=== PATIENT | female | born 1950 | race Caucasian/White ===

== ENCOUNTER → 2016-04-05 | Outpatient (CLI) | payer MEDICARE ==
[2016-04-05 16:02] VITALS: BP 123/72; PULSE 98; RESP 14; TEMP 98.4; BMI 38.2
--- NOTE | 2016-04-05 16:19 | P.HPBAR ---
Bariatric H&P - History & Physicial H&P Date: 04/05/16 History & Physicial: Visit/CC: band fill Patient initial contact: Initial weight: 111.13 kg Initial weight in pounds: 245.00 Height: 5 ft 3.5 in Initial BMI: 42.7 Last weight: Current weight: 99.518 kg Current weight in pounds: 219.40 Current BMI: 38.2 [place] body weight (based on NIH guidelines): 53.297 kg Excess body weight loss: 20.0% The patient is a 65 year-old F who presents for Bariatric Assessment. The patient presents for lab band follow. She has complaints of hunger. Past Medical History Past Medical History: No Reported History Additional Past Medical History / Comment(s): LAP-BAND 8-10yrs ago History of Any Multi-Drug Resistant Organisms: None Reported Past Surgical History: Hysterectomy Additional Past Surgical History / Comment(s): lap band Past Psychological History: No Psychological Hx Reported Smoking Status: Former smoker Past Alcohol Use History: None Reported Past Drug Use History: None Reported Surgical - Exam Vital Signs Temp Pulse Resp BP 98.4 F 98 14 123/72 04/05/16 15:56 04/05/16 15:56 04/05/16 15:56 04/05/16 15:56 - General well developed, no distress - Eyes PERRL - ENT normal pinna - Neck no masses - Respiratory normal expansion - Cardiovascular Rhythm: regular - Abdomen Abdomen: soft, non tender Bariatric Assessment & Plan Plan: Hunger. Patient's lap band was adjusted. She had 1.5 mL added to her band. She'll follow-up in 2 weeks. Bariatric Checklist Checklist: Plan: Checklist: EGD: 1. Hiatal hernia: 2. H. Pylori: HgbA1c: Vitamin D: Smoking: Former smoker Primary care physician referral: erlinda gagnon Psychiatry clearance: Cardiology clearance: Sleep study: Diet journal: VTE risk score: VTE risk level: Rehab needs at discharge:
== END | disposition home or self-care (01) ==
LOC: BARWHC3 15:15
PROVIDERS: ATTEND Surgery
DX: Z48.815 Encounter for surgical aftercare following surgery on the digestive system (principal); Z98.84 Bariatric surgery status; Z68.38 Body mass index [BMI] 38.0-38.9, adult; Z87.891 Personal history of nicotine dependence
CPT/HCPCS: 99212

== ENCOUNTER → 2017-03-14 | Outpatient (CLI) | payer MEDICARE ==
[2017-03-14 13:42] VITALS: BP 114/78; PULSE 99; RESP 15; TEMP 98.7; BMI 36.2
--- NOTE | 2017-03-14 16:31 | P.HPBAR ---
Bariatric H&P - History & Physicial H&P Date: 03/14/17 History & Physicial: Visit/CC: band fill Patient initial contact: Initial weight: 111.13 kg Initial weight in pounds: 245.00 Height: 5 ft 5 in Initial BMI: 40.7 Last weight: Current weight: 98.883 kg Current weight in pounds: 218.00 Current BMI: 36.2 [place] body weight (based on NIH guidelines): 56.699 kg Excess body weight loss: 22.4% The patient is a 66 year-old F who presents for Bariatric Assessment. She presents today for lab band follow up. She is currently hungry. She is requesting a fill of her LAP-BAND. Past Medical History Past Medical History: No Reported History Additional Past Medical History / Comment(s): LAP-BAND 8-10yrs ago History of Any Multi-Drug Resistant Organisms: None Reported Past Surgical History: Hysterectomy Additional Past Surgical History / Comment(s): lap band Past Psychological History: No Psychological Hx Reported Smoking Status: Former smoker Past Alcohol Use History: None Reported Past Drug Use History: None Reported Surgical - Exam Vital Signs Temp Pulse Resp BP 98.7 F 99 15 114/78 03/14/17 13:23 03/14/17 13:23 03/14/17 13:23 03/14/17 13:23 - General well developed, no distress - Eyes PERRL - ENT normal pinna - Neck no masses - Respiratory normal expansion - Cardiovascular Rhythm: regular - Abdomen Abdomen: soft, non tender Bariatric Assessment & Plan Plan: LAP-BAND was adjusted. She had 1.5 mL added to her band. She currently has 3 mL in the band. She's ill drink water without difficulty. She'll follow-up in one month. Bariatric Checklist Checklist: Plan: Checklist: EGD: 1. Hiatal hernia: 2. H. Pylori: HgbA1c: Vitamin D: Smoking: Former smoker Primary care physician referral: erlinda gagnon Psychiatry clearance: Cardiology clearance: Sleep study: Diet journal: VTE risk score: VTE risk level: Rehab needs at discharge:
== END | disposition home or self-care (01) ==
LOC: BARWHC3 12:56
PROVIDERS: ATTEND Surgery
DX: Z48.815 Encounter for surgical aftercare following surgery on the digestive system (principal); Z87.891 Personal history of nicotine dependence; Z98.84 Bariatric surgery status
CPT/HCPCS: 99212

== ENCOUNTER → 2017-03-21 | Outpatient (CLI) | payer MEDICARE ==
[2017-03-21 13:24] VITALS: BP 142/91; PULSE 88; RESP 16; TEMP 98.3; BMI 36.8
--- NOTE | 2017-03-21 15:05 | P.HPBAR ---
Bariatric H&P - History & Physicial H&P Date: 03/21/17 History & Physicial: Visit/CC: band adj Patient initial contact: Initial weight: 111.13 kg Initial weight in pounds: 245.00 Height: 5 ft 3.5 in Initial BMI: 42.7 Last weight: 218 Current weight: 95.906 kg Current weight in pounds: 211.00 Current BMI: 36.8 [place] body weight (based on NIH guidelines): 53.297 kg Excess body weight loss: 26.6% The patient is a 66 year-old F who presents for Bariatric Assessment. Patient resents today for her LAP-BAND adjustment. She states that she feels her band is too tight. Past Medical History Past Medical History: No Reported History Additional Past Medical History / Comment(s): LAP-BAND 8-10yrs ago History of Any Multi-Drug Resistant Organisms: None Reported Past Surgical History: Hysterectomy Additional Past Surgical History / Comment(s): lap band Past Psychological History: No Psychological Hx Reported Smoking Status: Former smoker Past Alcohol Use History: None Reported Past Drug Use History: None Reported Surgical - Exam Vital Signs Temp Pulse Resp BP 98.3 F 88 16 142/91 03/21/17 13:21 03/21/17 13:21 03/21/17 13:21 03/21/17 13:21 - General well developed, no distress - Eyes PERRL - ENT normal pinna - Neck no masses - Respiratory normal expansion - Cardiovascular Rhythm: regular - Abdomen Abdomen: soft, non tender Bariatric Assessment & Plan Plan: The patient LAP-BAND was adjusted. 0.5 mL was removed from her LAP-BAND. She will follow in 1 month for recheck. Bariatric Checklist Checklist: Plan: Checklist: EGD: 1. Hiatal hernia: 2. H. Pylori: HgbA1c: Vitamin D: Smoking: Former smoker Primary care physician referral: erlinda gagnon Psychiatry clearance: Cardiology clearance: Sleep study: Diet journal: VTE risk score: VTE risk level: Rehab needs at discharge:
== END | disposition home or self-care (01) ==
LOC: CANPRECLI → BARWHC3 12:56
PROVIDERS: ATTEND Surgery
DX: Z53.9 Procedure and treatment not carried out, unspecified reason (principal)

== ENCOUNTER → 2017-06-06 | Outpatient (CLI) | payer MEDICARE ==
[2017-06-06 15:32] VITALS: BP 155/88; PULSE 79; RESP 16; TEMP 98.1; BMI 38.3
--- NOTE | 2017-06-06 16:35 | P.HPBAR ---
Bariatric H&P - History & Physicial H&P Date: 06/06/17 History & Physicial: Visit/CC: band adj Patient initial contact: Initial weight: 111.13 kg Initial weight in pounds: 245.00 Height: 5 ft 3.5 in Initial BMI: 42.7 Last weight: Current weight: 99.819 kg Current weight in pounds: 220.06 Current BMI: 38.3 [place] body weight (based on NIH guidelines): 53.297 kg Excess body weight loss: 19.5% The patient is a 66 year-old F who presents for Bariatric Assessment. Patient resents today for lab band follow. She is currently hungry and is requesting a fill of her band. Past Medical History Past Medical History: No Reported History Additional Past Medical History / Comment(s): LAP-BAND 8-10yrs ago History of Any Multi-Drug Resistant Organisms: None Reported Past Surgical History: Hysterectomy Additional Past Surgical History / Comment(s): lap band Past Psychological History: No Psychological Hx Reported Smoking Status: Former smoker Past Alcohol Use History: None Reported Past Drug Use History: None Reported Surgical - Exam Vital Signs Temp Pulse Resp BP 98.1 F 79 16 155/88 06/06/17 15:30 06/06/17 15:30 06/06/17 15:30 06/06/17 15:30 - General well developed, well nourished - Eyes PERRL - ENT normal pinna - Neck no masses - Respiratory normal expansion - Cardiovascular Rhythm: regular - Abdomen Abdomen: soft, non tender Bariatric Assessment & Plan Plan: The patient LAP-BAND was adjusted. She had 0.3 mL added to her band. She tries to 0.8 mL in the band. She was able require without difficulty. She'll follow-up in one month. Bariatric Checklist Checklist: Plan: Checklist: EGD: 1. Hiatal hernia: 2. H. Pylori: HgbA1c: Vitamin D: Smoking: Former smoker Primary care physician referral: erlinda gagnon Psychiatry clearance: Cardiology clearance: Sleep study: Diet journal: VTE risk score: VTE risk level: Rehab needs at discharge:
== END | disposition home or self-care (01) ==
LOC: BARWHC3 14:47
PROVIDERS: ATTEND Surgery
DX: Z48.815 Encounter for surgical aftercare following surgery on the digestive system (principal); Z87.891 Personal history of nicotine dependence
CPT/HCPCS: 99212

== ENCOUNTER → 2022-09-22 | Outpatient (CLI) | payer MEDICARE ==
[2022-09-22 08:43] LABS: Basophils % (A) 0 %; Eosinophils % (A) 0 %; HCT 44.5 % (34.0-46.0); HGB 14.4 gm/dL (11.4-16.0); Lymphocytes # (A) 1.2 k/uL (1.0-4.8); Lymphocytes % (A) 43 %; MCH 28.9 pg (25.0-35.0); MCHC 32.3 g/dL (31.0-37.0); MCV 89.3 fL (80.0-100.0); Mean Platelet Volume 8.4; Monocytes # (A) 0.2 k/uL (0-1.0); Monocytes % (A) 7 %; Neutrophils # (A) 1.3 k/uL (1.3-7.7); Neutrophils % (A) 47 %; Platelet Count 139 k/uL (150-450); RBC 4.98 m/uL (3.80-5.40); RDW 13.6 % (11.5-15.5); WBC 2.7 k/uL (3.8-10.6)
[2022-09-22 12:24] LABS: C Reactive Protein, High Sens 0.811 mg/L (0.000-3.000)
[2022-09-22 12:35] LABS: Homocysteine 5.32 UMOL/L (4.00-14.00)
[2022-09-22 19:37] LABS: Clam IgE <0.10 kU/L; Codfish IgE <0.10 kU/L; Egg White IgE 0.28 kU/L; Peanut IgE <0.10 kU/L; Scallop IgE <0.10 kU/L; Shrimp IgE <0.10 kU/L; Soybean IgE <0.10 kU/L; Walnut IgE (Food) <0.10 kU/L
[2022-09-23 03:12] LABS: EBV - VCA IgM <10.0 U/mL (<36.0)
== END | disposition home or self-care (01) ==
LOC: LABWHC1 07:34
PROVIDERS: ATTEND Family Medicine
DX: Z13.6 Encounter for screening for cardiovascular disorders (principal); E78.5 Hyperlipidemia, unspecified; R41.9 Unspecified symptoms and signs involving cognitive functions and awareness
CPT/HCPCS: 36415; 82533; 82626; 82785; 83090; 85025; 86003; 86141; 86644; 86645; 86665

== ENCOUNTER → 2023-01-25 | Outpatient (CLI) | payer MEDICARE ==
[2023-01-25 16:52] LABS: ALT 27 U/L (8-44); AST 20 U/L (13-35); Albumin 4.3 g/dL (3.8-4.9); Albumin/Globulin Ratio 1.95 Ratio (1.60-3.17); Alkaline Phosphatase 90 U/L (41-126); Bilirubin, Conjugated <0.20 mg/dL (0.20-0.40); Bilirubin,Unconjugated >0.30 mg/dL (0.20-1.00); Chol/HDL Ratio 2.77 Ratio; Globulin 2.2 g/dL (1.6-3.3); LDL Cholesterol,Calculated 100.5 mg/dL (0.0-131.0); Total Bilirubin 0.5 mg/dL (0.3-1.2); Total Protein 6.5 g/dL (6.2-8.2)
== END | disposition home or self-care (01) ==
LOC: LABWHC1 09:07
PROVIDERS: ATTEND Internal Medicine Cardiovascular Disease
DX: E78.2 Mixed hyperlipidemia (principal)
CPT/HCPCS: 36415; 80061; 80076

== ENCOUNTER → 2024-01-17 | Outpatient (CLI) | payer MEDICARE ==
--- NOTE | 2024-01-17 11:16 | CTL ---
EXAMINATION TYPE: CT Low Dose Lung DATE OF EXAM ORDERED: 01/17/2024 COMPARISON: None CLINICAL INDICATION: Female, 73 years old with history of Z12.2 LUNG CANCER SCREEN; H, HISTORY OF [facility], Lung cancer screening, History of Smoking/tobacco use. TECHNIQUE: Low dose computed tomography scan was performed through the chest at 1 mm thick sections a nd reconstructed images in multiple planes at 1 mm and [address] DLP: 140.[address] CTDI: 4.0 mGy Automated exposure control for dose reduction was used. CT DIAGNOSTIC QUALITY: Satisfactory FINDINGS: Nodules: No clinically significant pulmonary nodule. LUNGS: COPD: Severity: None Fibrosis: Severity: None Lymph nodes: None Other findings: None RIGHT PLEURAL SPACE: Effusion: None Calcification: None Thickening: None Pneumothorax: None LEFT PLEURAL SPACE: Effusion: None Calcification: None Thickening: None Pneumothorax: None HEART: Heart Size: Normal Coronary Calcification: Mild Pericardial Effusion: Trace OTHER FINDINGS: Upper abdomen: Hypodense heterogenous 2.0 cm right hepatic lobe lesion. Gastric lap band. Bony thorax: Mild multilevel degenerative disc disease. Prominent Schmorl's node involving the inferi or endplate of the T10 vertebral body. Supraclavicular region: None Other: None IMPRESSION: 1. No clinically significant pulmonary nodule. 2. Heterogenous hypodense 2.0 cm right hepatic lobe lesion. May represent a cyst versus hemangioma v ersus other. Correlation with any prior imaging is recommended otherwise consider further evaluation with CT or MR abdomen liver mass protocol is recommended. CT LUNG RAD AND CT CHEST RECOMMENDATION: Lung-Rad 1 Negative: Continue annual screening with LDCT in 12 months. S Modifier (other clinically significant findings): [facility], , 01/17/2024 11:13 AM
== END | disposition home or self-care (01) ==
LOC: RADCTMAIN 10:48
PROVIDERS: ATTEND Family Medicine
DX: Z12.2 Encounter for screening for malignant neoplasm of respiratory organs (principal); K76.9 Liver disease, unspecified; Z87.891 Personal history of nicotine dependence
CPT/HCPCS: 71271

== ENCOUNTER → 2024-09-04 | Outpatient (CLI) | payer MEDICARE ==
[2024-09-04 11:56] LABS: ALT 17 U/L (8-44); AST 19 U/L (13-35); Albumin 4.2 g/dL (3.8-4.9); Albumin/Globulin Ratio 1.83 Ratio (1.60-3.17); Alkaline Phosphatase 78 U/L (41-126); Bilirubin,Unconjugated >0 mg/dL (0.20-1.00); Cholesterol 214.00 mg/dL (0.00-200.00); Globulin 2.3 g/dL (1.6-3.3); HDL Cholesterol 72.00 mg/dL (40.00-60.00); LDL Cholesterol,Calculated 124.3 mg/dL (0.0-131.0); Total Protein 6.5 g/dL (6.2-8.2); Triglycerides 88.30 mg/dL (0.00-149.00); VLDL Calculation 17.66 mg/dL (5.00-40.00)
== END | disposition home or self-care (01) ==
LOC: LABWHC1 07:14
PROVIDERS: ATTEND Internal Medicine Cardiovascular Disease
DX: E78.2 Mixed hyperlipidemia (principal)
CPT/HCPCS: 36415; 80061; 80076